=== PATIENT | female | born 1970 | race Caucasian/White ===

== ENCOUNTER → 2016-12-06 | Outpatient (CLI) | payer OTHER | LOC: GMA 17:54 | PROVIDERS: ATTEND Nurse Practitioner Family | DX: N39.0 Urinary tract infection, site not specified (principal) ==

== ENCOUNTER → 2017-04-25 | Outpatient (CLI) | payer OTHER ==
--- NOTE | 2017-04-26 15:07 | MRI ---
EXAM DESCRIPTION: Cervical Spine CLINICAL HISTORY: M54.2. Left arm and shoulder pain. Neck pain. COMPARISON: 09/21/2015 TECHNIQUE: MRI of the cervical spine is performed according to our usual protocol. FINDINGS: Straightening of the normal cervical lordosis. Susceptibility artifact from ACDF hardware again demonstrated from C4 through C6. Vertebral body stature is maintained. There is no acute fracture or destructive osseous lesion. Craniocervical junction and the cervical spinal cord are unremarkable. C2-3: No significant findings. C3-4: Disc desiccation with mild disc narrowing. 2.5 mm posterior disc osteophyte complex with mild spinal canal stenosis again demonstrated. Residual AP diameter of the thecal sac is 8.4 mm, as before. Moderate left and mild right neural foraminal stenosis. C4-5: Operative changes with susceptibility artifact. No evidence of spinal canal or neural foraminal stenosis. C5-6: Operative changes with susceptibility artifact. Osteophytic ridging of the endplates with no evidence of spinal canal or neural foraminal stenosis. C6-7: Disc desiccation with moderate disc narrowing. 3.5 mm posterior disc osteophyte complex with moderate spinal canal stenosis which may be slightly progressed since the prior exam. Material abuts and flattens the ventral aspect of the spinal cord. Residual AP diameter of the thecal sac is 7.1 mm, previously 7.5 mm. The neural foramina are patent. C7-T1: No significant findings. IMPRESSION: 1. Spondylitic and facet generative changes in the cervical spine as described above. At C6-C7, there is questionable slight progression of spinal canal stenosis, now moderate with material contacting and altering the ventral contour of the spinal cord. 2. At C3-C4, there is mild spinal canal stenosis, moderate left neural foraminal stenosis, and mild right neural foraminal stenosis. 3. Operative changes from C4 through C6. Electronically signed by: Marcus Rubio MD 04/26/2017 3:06 PM CDT
== END | disposition home or self-care (01) ==
LOC: MRI 12:31
PROVIDERS: ATTEND Family Medicine
DX: M54.2 Cervicalgia (principal)

== ENCOUNTER → 2017-09-07 | Outpatient (CLI) | payer OTHER ==
--- NOTE | 2017-09-07 13:20 | US ---
EXAM DESCRIPTION: Venous,Lower Extremity RT CLINICAL HISTORY: PN AND SWELLING COMPARISON: None Available. TECHNIQUE: Right lower extremity venous duplex FINDINGS: Exam reveals minimal distal thrombosis in the right posterior tibial vein. There is also minimal thrombosis in a superficial varicosity in the calf. The remainder the deep venous system is patent. Normal augmentation is obtained in the groin and popliteal regions. IMPRESSION: Minimal thrombus is observed in the distal right posterior tibial vein and in a superficial varix Electronically signed by: Jonny Monae MD 09/07/2017 1:19 PM [facility]
== END ==
LOC: GMAB 12:24
PROVIDERS: ATTEND Family Medicine
DX: I82.441 Acute embolism and thrombosis of right tibial vein (principal)

== ENCOUNTER → 2018-05-18 | Outpatient (CLI) | payer OTHER ==
--- NOTE | 2018-05-19 13:43 | MRI ---
EXAM DESCRIPTION: Lumbar Spine w/o Contrast : Magnetic Resonance Imaging. CLINICAL HISTORY: LUMBAR RADICULOPATHY COMPARISON: MRI lumbar spine without contrast 09/21/2015. TECHNIQUE: Multiplanar, multiple standard sequences, non contrast MRI, lumbar spine. FINDINGS: L5-S1: Disc space preserved with normal signal in the disc. Minimal arthrosis of the bilateral facets. Mild canal narrowing. Mild bilateral foraminal narrowing. More right than left. Circumscribed hyperintense T1 and T2 signal in the L5 vertebral body. No change. L4-5: Minimal disc desiccation. Tiny posterior midline bulge. Bilateral flavum ligament hypertrophy and facet arthrosis. Mild to moderate canal narrowing. Grade 1 anterolisthesis 3 mm. Bilateral L4 pars sclerosis no definite defect. Bilateral foramina are patent. Stable since the prior study. L3-4: No disc desiccation. Disc space preserved. No significant disc bulge into the canal with minimal bulge into the left foramen and mild narrowing. No nerve impingement. Right foramen is patent. Minimal flavum ligament hypertrophy. No change. L2-3: Disc space preserved with normal signal in the disc. Minimal arthrosis of the left facet. Canal and foramina are patent. L1-2: Disc space preserved. Intimal disc desiccation. Schmorl's node superior L2. No disc bulge. Canal and foramina are patent. Posterior elements unremarkable. Stable since the prior study. T12-L1: Minimal disc desiccation with disc space preserved. Schmorl's nodes superior and inferior endplate. Posterior elements unremarkable. Canal and foramina are patent. Hyperintense, circumscribed T1 and T2 signal in the T12 vertebral body. Conus terminates just above the disc space. Mid lumbar levoscoliosis is mild. Paravertebral soft tissues negative.. Normal marrow signal in the remaining vertebral bodies and the posterior elements. Vertebral bodies are not compressed at any level. IMPRESSION: 1. Tiny posterior midline bulge L4-5 disc. Grade 1 anterolisthesis 3 mm with bilateral L4 pars sclerosis but no definite defect. Mild to moderate canal narrowing. Bilateral foramina are patent. Stable since the prior study 2. Mild canal and bilateral foraminal narrowing at L5-S1. Stable since the prior study. 3. L3-4 disc bulge into the left foramen with mild narrowing. Stable since the prior study. 4. Endplate changes superiorly at L2 and superior L1 and inferior T12 stable since the prior study. Hemangiomas in the T12 vertebral body and the L5 vertebral body are unchanged. Electronically signed by: Clay Chow MD 05/19/2018 1:42 PM CDT
== END ==
LOC: MRI 13:06
PROVIDERS: ATTEND Family Medicine
DX: M54.15 Radiculopathy, thoracolumbar region (principal); M51.26 Other intervertebral disc displacement, lumbar region; D18.09 Hemangioma of other sites

== ENCOUNTER → 2018-08-08 | Outpatient (CLI) | payer OTHER ==
--- NOTE | 2018-08-08 17:29 | US ---
EXAM DESCRIPTION: Venous,Lower Extremity RT CLINICAL HISTORY: I80.201 COMPARISON: None Available. TECHNIQUE: Right lower extremity venous duplex FINDINGS: Doppler evaluation of the right lower extremity deep veins was performed. Normal color flow is seen in the common femoral, superficial femoral, profunda femoral and greater saphenous veins. Normal flow is seen in the popliteal vein and veins below the knee in the calf. Normal venous compressibility and flow augmentation. IMPRESSION: Negative for evidence of deep venous thrombosis on right lower extremity venous Doppler sonogram. Electronically signed by: Gilberto Kay MD 08/08/2018 5:28 PM [employer]
--- NOTE | 2018-08-08 17:54 | US ---
Exam: Bilateral lower extremity arterial Doppler sonogram CLINICAL HISTORY: Right calf pain, varicose vein with thrombosis, palpable lump TECHNIQUE: Doppler sonographic evaluation of the bilateral lower extremities was performed. FINDINGS: Right Submitted sonographic images reveal normal widely patent vessels with no significant stenosis. Normal flow velocities with multiphasic flow throughout the right lower extremity. The following peak systolic flow flow velocity measurements were obtained: Common femoral artery velocity equals 120 centimeters per second , triphasic. Superficial femoral artery velocity equals 88 -102 centimeters per second , triphasic. Popliteal artery velocity equals 53 centimeters per second , triphasic. Peroneal artery velocity equals 34 centimeters per second , biphasic. Posterior tibial artery velocity equals 63 centimeters per second , biphasic. Dorsalis pedis artery velocity equals 19 centimeters per second , monophasic. Left Submitted sonographic images reveal normal widely patent left lower extremity arteries with multiphasic flow and no significant stenosis. The following peak systolic flow flow velocity measurements were obtained: Common femoral artery velocity equals 75 centimeters per second , triphasic. Superficial femoral artery velocity equals 76-83 centimeters per second , triphasic. Popliteal artery velocity equals 52 centimeters per second , triphasic. Peroneal artery velocity equals 15 centimeters per second , monophasic. Posterior tibial artery velocity equals 36 centimeters per second , triphasic. Dorsalis pedis artery velocity equals 0 centimeters per second , monophasic. IMPRESSION: No visualized stenosis. Multiphasic flow in most of the lower extremity arteries. See above. Electronically signed by: Gilberto Kay MD 08/08/2018 5:52 PM [employer]
== END ==
LOC: US 16:00
PROVIDERS: ATTEND Family Medicine
DX: M79.661 Pain in right lower leg (principal); M79.662 Pain in left lower leg; I83.813 Varicose veins of bilateral lower extremities with pain; I80.201 Phlebitis and thrombophlebitis of unspecified deep vessels of right lower extremity

== ENCOUNTER → 2019-11-11 | Outpatient (CLI) | payer OTHER | LOC: GMAE 19:22 | PROVIDERS: ATTEND Family Medicine | DX: Z00.00 Encounter for general adult medical examination without abnormal findings (principal) ==

== ENCOUNTER → 2019-11-13 | Outpatient (CLI) | payer OTHER ==
--- NOTE | 2019-11-14 08:24 | CT ---
EXAM DESCRIPTION: Chest w/o Contrast : Computed Tomography. CLINICAL HISTORY: 49 years Female COUGH COMPARISON: Chest x-ray November 10. TECHNIQUE: Spiral-axial scans at 5 x 5 mm intervals through the lungs and thorax without IV contrast. 2.5 x 5 mm lung algorithm axial reconstructions. : Sagittal 2.0 Mm reconstructions. Total Exam DLP: 886 mGy-cm. This exam was performed according to our departmental dose-optimization program which includes automated exposure control, adjustment of the mA and/or kV according to patient size and/or use of iterative reconstruction technique; to reduce radiation dose to as low as reasonably achievable (ALARA). Nodule measurements under 10 mm are given as mean value of 3 axes diameters. FINDINGS: Lungs and large airways: No abnormal nodules and no masses. No focal infiltrates. Pleural spaces: Negative. Mediastinum and Elizabeth: Evaluation limited due to lack of IV contrast small nodes with no dominant masses. Great vessels and Heart: Evaluation limited due to lack of IV contrast. Unremarkable. Soft tissues of neck base, axillae, and chest wall: Evaluation limited due to lack of IV contrast. Small axillary nodes otherwise negative. Upper abdomen: Cholecystectomy with no fluid in the gallbladder fossa. Normal size and density of the adrenal glands and spleen. Normal density of the remaining partially visualized organs. No free air or free fluid. Osseous structures: Mild to moderate mid thoracic dextroscoliosis. Also minimal thoracic spondylosis diffusely. IMPRESSION: 1. No abnormal nodules and no masses. No focal infiltrates. Mild to moderate mid thoracic dextroscoliosis. Electronically signed by: Clay Chow MD 11/14/2019 8:22 AM CDT
== END ==
LOC: CT 10:07
PROVIDERS: ATTEND Family Medicine
DX: R05 Cough (principal); M41.9 Scoliosis, unspecified

== ENCOUNTER → 2019-11-20 | Outpatient (CLI) | payer OTHER | DX: R05 Cough (principal) ==

== ENCOUNTER → 2020-02-28 | Outpatient (CLI) | payer OTHER ==
--- NOTE | 2020-03-02 12:07 | MRI ---
MRI right ankle without contrast INDICATION: Calcifications in tendon posterior heel pain Achilles pain since surgery 6 months ago TECHNIQUE: Noncontrast MR imaging right ankle COMPARISON: None available FINDINGS: Previous Achilles repair/root attachment with anchors in the posterior calcaneus and thickening of the tendon diffusely. No acute rupture. There is however active marrow edema in the posterior superior calcaneus abutting the peripheral calcaneal bursa. There is evidence of mild osseous erosion. This may be related to the bursa. Consider rheumatologic assessment such as seronegative disorder. No florid bursitis. Small plantar enthesophyte. No active plantar fasciitis. Small ankle effusion. Mild superficial edema adjacent to the mid Achilles tendon. Cornuate morphology of the navicular which is an anatomic variant. Indistinct anterior talofibular ligament indicating prior sprain. Mild superficial edema along the medial and lateral aspects of the ankle. Small dorsal osteophytes talonavicular joint. Os peroneum is noted adjacent to the cuboid. There is fragmentation of the os peroneum/multi partite configuration. There is edema at the interface suggesting motion/instability correlate with symptoms at the cuboid level No osteochondral lesion talar dome. Minimal enthesophyte formation along the deep deltoid. Mortise is congruent. Syndesmosis is congruent. IMPRESSION: No detachment of the Achilles repair No acute Achilles rupture Active edema posterior superior calcaneus with possible mild erosion related to the retrocalcaneal bursa Rheumatologic assessment may be useful Multi partite os peroneum with edema/high signal between the ossicles correlate with tenderness at the interface with the cuboid Electronically signed by: Karan Martinez MD 03/02/2020 12:05 PM CDT
== END ==
LOC: MRI 13:55
PROVIDERS: ATTEND Physician Assistant
DX: M65.89 Other synovitis and tenosynovitis, multiple sites (principal); M76.61 Achilles tendinitis, right leg; R60.0 Localized edema; M89.8X7 Other specified disorders of bone, ankle and foot

== ENCOUNTER → 2020-08-11 | Outpatient (CLI) | payer BC | LOC: GMAE 11:56 | PROVIDERS: ATTEND Family Medicine | DX: U07.1 COVID-19 (principal) ==

== ENCOUNTER → 2020-08-17 | Outpatient (CLI) | payer BC ==
--- NOTE | 2020-08-17 15:54 | RAD ---
EXAM DESCRIPTION: Chest,2 Views CLINICAL HISTORY: COVID COMPARISON: Previous chest x-ray November 11, 2019, previous CT chest November 13, 2019 TECHNIQUE: PA/lateral FINDINGS: Patchy peripheral infiltrates in both right and left lungs consistent with pneumonia. This pattern is typical of COVID pneumonia. The lungs were clear at the time of the previous studies. Heart size is prominent. Prominent pulmonary vascularity. Plate and screws in the lower C-spine. Lateral view shows intact sternum and T-spine. No pleural fluid accumulation is seen posteriorly. IMPRESSION: Bilateral peripheral pulmonary infiltrates consistent with pneumonia. Electronically signed by: Gilberto Kay MD 08/17/2020 3:53 PM [facility]
== END ==
LOC: LAB.O 10:55
PROVIDERS: ATTEND Family Medicine
DX: U07.1 COVID-19 (principal); R91.8 Other nonspecific abnormal finding of lung field